=== PATIENT | female | born 1960 | race Caucasian/White ===

== ENCOUNTER 2018-07-17 09:44 | Emergency (ER) | payer BC ==
[2018-07-17 10:13] VITALS: BP 140/89
--- NOTE | 2018-07-17 11:00 | UC ---
Throat Pain/Nasal Naun HPI - HPI Summary HPI Summary: 57-year-old female presents with 4 day history of sore throat, nasal congestion , postnasal drip, bilateral ear fullness, and occasionally productive cough. States cough worsens when she lies down at night. Sputum ranges from white to green in color. Denies fever, chills, dysphagia, chest pain, shortness of breath, abdominal pain, nausea, or vomiting. States she has been exposed to strep recently, grandchildren diagnosed last week. - History of Current Complaint Chief Complaint: UCGeneralIllness Stated Complaint: ST Time Seen by Provider: 07/17/18 10:57 Hx Obtained From: Patient Onset/Duration: Gradual Onset, Lasting Days - 4 Severity: Moderate Pain Intensity: 5 Cough: Productive Associated Signs & Symptoms: Positive: Sinus Discomfort, Nasal Discharge. Negative: Dysphagia, Wheezing, Hoarseness, Fever, Vomiting, Rash - Allergies/Home Medications Allergies/Adverse Reactions: Allergies Allergy/AdvReac Type Severity Reaction Status Date / Time Sulfa (Sulfonamide Allergy Swelling Verified 07/17/18 10:11 Antibiotics) amoxicillin AdvReac GI Upset Verified 07/17/18 10:11 clavulanic acid AdvReac GI Upset Verified 07/17/18 10:11 [From Augmentin] PMH/Surg Hx/FS Hx/Imm Hx Previously Healthy: Yes Psychological History: Depression - Surgical History Surgical History: Yes Surgery Procedure, Year, and Place: hysterectomy 1992 - Family History Known Family History: Positive: Non-Contributory - Social History Occupation: Employed Full-time Lives: With Family Alcohol Use: Daily Alcohol Amount: 3 beers nightly Substance Use Type: None Smoking Status (MU): Never Smoked Tobacco Review of Systems All Other Systems Reviewed And Are Negative: Yes Constitutional: Negative: Fever, Chills Skin: Negative: Rash Eyes: Negative: Drainage, Eye Redness ENT: Positive: Sore Throat, Ear Ache, Nasal Discharge, Sinus Congestion, Sinus Pain/Tenderness Respiratory: Positive: Cough. Negative: Shortness Of Breath Cardiovascular: Negative: Palpitations, Chest Pain Gastrointestinal: Negative: Abdominal Pain, Vomiting, Nausea Is Patient Immunocompromised?: No Physical Exam Triage Information Reviewed: Yes Appearance: Well-Appearing, No Pain Distress, Well-Nourished Vital Signs: Initial Vital Signs Temp 97.9 F 07/17/18 10:06 Pulse 70 07/17/18 10:06 Resp 16 07/17/18 10:06 BP 140/89 07/17/18 10:06 Pulse Ox 97 07/17/18 10:06 Vital Signs Reviewed: Yes Eyes: Positive: Conjunctiva Clear. Negative: Discharge ENT: Positive: Hearing grossly normal, Pharyngeal erythema - Mild with cobblestoning, Nasal congestion, Nasal drainage, TMs normal, Sinus tenderness - Maxillary, Uvula midline. Negative: Tonsillar swelling, Tonsillar exudate, Trismus Neck: Positive: Supple, Nontender, No Lymphadenopathy Respiratory: Positive: Chest non-tender, Lungs clear, Normal breath sounds, No respiratory distress Cardiovascular: Positive: RRR, No Murmur, Pulses Normal, Brisk Capillary Refill Abdomen Description: Positive: Nontender, No Organomegaly, Soft. Negative: Distended, Guarding Bowel Sounds: Positive: Present Neurological: Positive: Alert Skin Exam: Normal Diagnostics - Laboratory Diagnostic Studies Completed/Ordered: POC rapid strep negative Throat Pain/Nasal Course/Dx - Course Course Of Treatment: 57-year-old female presents with 4 day history of sore throat, nasal congestion, postnasal drip, bilateral ear fullness, and occasionally productive cough. Afebrile. Exam consistent with a viral URI vs sinusitis. Rapid strep negative. Recommend symptomatic treatment. She is to follow up with PCP in 7 days if symptoms persist. Warning symptoms reviewed. Verbalizes understanding and agrees with POC. - Differential Dx/Diagnosis Differential Diagnosis/HQI/PQRI: Influenza, Pharyngitis, Sinusitis, Tonsillitis , URI Provider Diagnoses: Viral URI, elevated blood pressure reading Discharge - Sign-Out/Discharge Documenting (check all that apply): Patient Departure All imaging exams completed and their final reports reviewed: No Studies - Discharge Plan Condition: Stable Disposition: HOME Prescriptions: Fluticasone NASAL SPRAY 50MCG* [Flonase NASAL SPRAY 50MCG*] 2 spray BOTH NARES DAILY #1 btl Patient Education Materials: Upper Respiratory Infection (ED) Referrals: Marilin Grande MD [Primary Care Provider] - 7 Days (If symptoms persist) Additional Instructions: Your history and exam are consistent with viral upper respiratory infection. Viral infections do not respond to antibiotics and typically run their course over 7-10 days. Use a saline rinse kit such as Neti Pot or NeilMed at least twice a day. Start fluticasone nasal spray 2 sprays each nostril once a day. Take an over the counter decongestant such as Sudafed according to directions as needed for nasal congestion. Take acetaminophen (Tylenol) or ibuprofen (Advil, Motrin) according to directions as needed for fever or pain. Use salt water gargles several times a day if you have a sore throat. You may also use Chloraseptic spray or Cepacol lozenges for some temporary pain relief from your sore throat. Follow-up with your primary care provider in 7 days if symptoms persist. Your blood pressure was elevated in the clinic today. You should follow up with your primary care provide within the next 4 weeks to have this rechecked. Seek immediate medical attention if you have a persistent fever greater than 100.5 F despite taking acetaminophen or ibuprofen, you are unable to swallow, has difficulty breathing, or have any worsening of symptoms. - Billing Disposition and Condition Condition: STABLE Disposition: Home - Attestation Statements Provider Attestation: I was available for consult. This patient was seen by the [facility]. The patient was not presented to, seen by, or examined by me. -Aminata
== END 2018-07-17 11:13 | disposition home or self-care (01) ==
LOC: UCCORT 09:44
DX: R03.0 Elevated blood-pressure reading, without diagnosis of hypertension (principal); J06.9 Acute upper respiratory infection, unspecified; Z20.828 Contact with and (suspected) exposure to other viral communicable diseases; Z88.1 Allergy status to other antibiotic agents; Z88.0 Allergy status to penicillin
CPT/HCPCS: 87651; 99202; G0463